=== PATIENT | male | born 1950 | race Caucasian/White ===

== ENCOUNTER 2017-04-10 09:22 | Day surgery (SDC) | payer OTHER, BC ==
[2017-04-10 09:38] VITALS: BMI 28.8
[2017-04-10] MEDS ORDERED: BUPIVACAINE HCL/PF 0.5% (5MG/ML) 10 ML VIAL ONE (12:12)
[2017-04-10] MEDS ORDERED: LIDOCAINE HCL/PF 2% SDV 5ML VIAL ONE (12:41)
[2017-04-10] MEDS ORDERED: PROPOFOL 20 ML ONE ×2 (12:41)
[2017-04-10] MEDS ORDERED: MIDAZOLAM HCL 2 MG/2 ML SINGLE DOSE VIAL ONE (12:41)
[2017-04-10] MEDS ORDERED: ROCURONIUM BROMIDE 50 MG/5 ML VIAL ONE (12:41)
[2017-04-10] MEDS ORDERED: LIDOCAINE HCL 2% (20ML MULTI-DOSE VIAL) NR ONE (13:20)
--- NOTE | 2017-04-10 13:37 | HP ---
History & Physical Update - History History: No Change - Physical Physical: No Change - Assessment Assessment: No Change - Plan Plan: No Change
[2017-04-10] MEDS ORDERED: ceFAZolin SODIUM 1 GM VIAL ONE (14:00)
[2017-04-10] MEDS ORDERED: ceFAZolin SODIUM 1 GM VIAL IVPB ONE (14:02)
[2017-04-10] MEDS ORDERED: BUPIVACAINE HCL/PF 0.5% (5MG/ML) 10 ML VIAL IJ ONE (14:04)
[2017-04-10] MEDS ORDERED: DEXAMETHASONE SOD PHOSPHATE 4 MG/1 ML VIAL ONE (14:22)
[2017-04-10] MEDS ORDERED: ONDANSETRON 4 MG/2 ML VIAL ONE (14:22)
[2017-04-10] MEDS ORDERED: MICROFIBRILLAR COLLAGEN 1 GM EACH ONE (14:30)
[2017-04-10] MEDS ORDERED: GLYCOPYRROLATE 0.2 MG/1 ML VIAL ONE (14:46)
[2017-04-10] MEDS ORDERED: NEOSTIGMINE METHYLSULFATE 0.5 MG/ML - 10 ML MDV ONE (14:46)
--- NOTE | 2017-04-10 14:54 | OP ---
Operative Note - Note: Operative Date: 04/10/17 Pre-Operative Diagnosis: r/o recurrent lymphoma, enlarged messenteric lymph node Operation: Laparoscopic messenteric lymph node biopsy Post-Operative Diagnosis: Same as Pre-op Surgeon: Aaron Castillo Dumper Operator: Cezar Sanders Anesthesiologist/ENVELOPE PATTERNMAKER: Corrie Moreno Anesthesia: General Specimens Removed: messenteric lymph node Estimated Blood Loss (mls): 25 Fluid Volume Replaced (mls): 350 Operative Report Dictated: Yes
--- NOTE | 2017-04-10 14:55 | SURG ---
Surgery Inweaver Note Inweaver: Cezar Sanders PA-C Date of Service: 04/10/17 Diagnosis: r/o recurrent lymphoma Procedure: Laparoscopic messenteric lymph node biopsy I was present for the entirety of the operative procedure. For further detail, please refer to operative report. Visit type - Case Type Case Type: Scheduled Admission - New patient This patient is new to me today: Yes Date on this admission: 04/10/17
[2017-04-10] MEDS ORDERED: ACETAMINOPHEN 1000 MG/100 ML VIAL (NON FORMULARY) IVPB ONE (14:56)
[2017-04-10] MEDS ORDERED: ONDANSETRON 4 MG/2 ML VIAL IVPUSH PRN (15:10)
[2017-04-10] MEDS ORDERED: oxyCODONE HCL 5 MG TABLET PO PRN (15:10)
[2017-04-10] MEDS ORDERED: ACETAMINOPHEN 500 MG TABLET (FP) PO PRN (15:10)
[2017-04-10] MEDS ORDERED: LACTATED RINGERS SOLUTION 1,000 ML IV SCH (15:15)
[2017-04-10] MEDS ORDERED: ACETAMINOPHEN INJECTION 100 ML IVPB ONE (15:29)
[2017-04-10 16:03] VITALS: TEMP 98.5
[2017-04-10 18:20] VITALS: BP 124/83; PULSE 88
--- NOTE | 2017-04-11 11:05 | OP ---
DATE OF OPERATION: 04/10/2017 PREOPERATIVE DIAGNOSIS: Mesenteric mass, rule out recurrent lymphoma. POSTOPERATIVE DIAGNOSIS: Mesenteric mass, rule out recurrent lymphoma. PROCEDURE: Diagnostic laparoscopy and biopsy of mesenteric mass. SURGEON: MD Krystina HOUSING INSPECTORS: FEROZ Blackwell COMPLICATIONS: None. BLEEDING: Approximately 30 mL. SPECIMENS: A segment of lymph node CONDITION: Patient tolerated the procedure well. INDICATIONS: This is a 66-year-old male with history of lymphoma for which he underwent previous treatment with good remission who presents now with a newly identified mesenteric mass for which a diagnostic excision was requested for purpose of diagnosis and treatment. Patient is currently being anticoagulated on Eliquis, which was stopped approximately three days ago. Risks and benefits were discussed with the patient and family, who agreed to proceed with this plan. DESCRIPTION OF PROCEDURE: In the operating room, after the induction of general anesthesia, patient was prepped and draped in the usual sterile fashion. IV antibiotics were administered. A standard time-out was observed, and the operation was begun with insufflation through a Veress needle in the left subcostal margin to a pressure of 15 mmHg. An Optiview trocar was then used to introduce a 5-mm port into the peritoneal cavity in the left upper quadrant under direct vision. Secondary trocars were placed, also under direct visualization with the laparoscope in place, two in the right lower quadrant and one in the left lower quadrant. A diagnostic laparoscopy revealed a mass in the paraduodenal region just inferior and posterior to the hepatic flexure. The mass could clearly be visualized just to the right of the superior mesenteric artery and its branches. Given the size of it and critical location of major vascular structures, a decision was made to not excise it, but perform a diagnostic biopsy for purposes of identification and diagnostic treatment. The peritonea overlying the mass was initially incised with cautery, and then LigaSure was used to then transect the superior and anterior aspect of this what appeared to be a lymph node mass. It was transected completely and placed in an EndoCatch bag and brought out through umbilical port. Hemostasis was achieved initially with cautery. Then, after use of LigaSure and monopolar cautery, Floseal and Surgicel were applied. At this point, the abdominal cavity was desufflated for approximately 5 minutes, and upon reinsufflation, there was no evidence of any bleeding. Appropriate hemostasis. At this point, it was decided to remove the ports, and the ports were then closed with 4-0 Monocryl upon good hemostasis, and Dermabond was applied, and the patient was returned to the recovery room, awake, alert, and in stable condition. He tolerated the procedure well. TIMO JONES M.D. [id number]
--- NOTE | 2017-04-16 09:39 | PATH ---
Surgical Pathology Report Patient Name: MARILUZ ZAVALA Med. Rec. 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 Comment: This case was seen in consultation with hematopathology service at [place], [place] ([id number], Dr. Finn). The diagnosis above reflects the consultation opinion. Sections show an enlarged lymph node with a nodular architecture. There are numerous secondary follicles of varying size and shape. The germinal centers contain normal components including centrocytes, centroblasts and tingible body macrophages. They are surrounded by a well-defined mantle zone. In addition, there is scattered follicles that show progressive transformation of germinal centers. The interfollicular areas are expanded by predominantly small lymphocytes with occasional larger cells and plasma cells. Immunohistochemical stains were performed on block #3 at [place], [place]: Stains for CD20 and CD3 from normal compartmentalization of B-cells and T-cells, respectively. The CD20+ germinal centers are additionally positive for CD10 and BCL-6; while they are negative for BCL-2. Stains for CD21 and CD23 highlight intact follicular dendritic meshwork within the follicles. A stain for CD5 similar to CD3. A stain for cyclin D1 is negative from lymphocytes. A stain for CD138 highlight scattered plasma cells. In situ hybridization for kappa and lambda light chains show the plasma cells to be polytypic. Flow cytometry performed and interpreted on the concurrent specimen at [place], [place] ([id number]) showed no evidence of B- or T-cell proliferative disorders in the sample analyzed. The B-cells (45% of total) were polytypic. The T-cells (52% of total) showed no yepez T-cell antigenic deletion. The CD4: CD8 ratio was 7.2:1. Electronically Signed Mariano Hong M.D. Gross Description Received fresh labeled "mesenteric lymph node biopsy" is a 3.4 x 2.8 x 0.9 cm mendoza-yellow, irregular soft tissue mass. A phone representative portion is placed in RPMI solution and sent for flow cytometry. The remainder of the specimen is entirely submitted in 5 cassettes. 04/10/2017 [facility]04/10/2017
== END 2017-04-10 18:21 | disposition home or self-care (01) ==
LOC: JASU-SURG 09:22
PROVIDERS: ATTEND Surgery
PROC: 0DBV4ZX Excision of Mesentery, Percutaneous Endoscopic Approach, Diagnostic (ICD-10-PCS; principal; 2017-04-10 11:00)
DX: R59.0 Localized enlarged lymph nodes (principal)
CPT/HCPCS: 88305-TC; 94760

== ENCOUNTER 2022-06-20 14:47 | Inpatient (IN) | payer OTHER, BC ==
[2022-06-20 14:54] VITALS: BMI 25.5
[2022-06-20] MEDS ORDERED: METOPROLOL TARTRATE 5 MG/5 ML VIAL IVPUSH ONE (16:45)
[2022-06-20] MEDS ORDERED: METOPROLOL TARTRATE 5 MG/5 ML VIAL ONE (16:56)
[2022-06-20 17:24] LABS: BASO % 0.3 % (0-2.0); EOS % 0.1 % (0-4.5); HEMATOCRIT 42.8 % (35.4-49); HEMOGLOBIN 14.1 GM/dL (11.7-16.9); LYMPH % 6.1 % (8-40); MCH 30.4 pg (25.7-33.7); MCHC 32.9 g/dl (32.0-35.9); MEAN CELL VOLUME 92.2 fl (80-96); MEAN PLT VOLUME 10.7 fl (7.5-11.1); MONO % 9.6 % (3.8-10.2); NEUT % 83.9 % (42.8-82.8); PLATELET COUNT 254 10^3/uL (134-434); RBC 4.65 M/mm3 (4.00-5.60); RDW 14.8 % (11.9-15.9)
[2022-06-20 17:35] LABS: INR 1.15 (0.83-1.09); PROTHROMBIN TIME (PATIENT) 13.3 SEC (9.7-13.0)
[2022-06-20 17:41] LABS: CHLORIDE 103 mmol/L (98-107); SODIUM 138 mmol/L (136-145)
[2022-06-20 17:43] LABS: ANION GAP 15 MMOL/L (8-16); CO2 20 mmol/L (21-32); GLUCOSE,RANDOM 312 mg/dL (74-106)
[2022-06-20 17:46] LABS: CREATININE 5.4 mg/dL (0.55-1.3); SGOT/AST 62 U/L (15-37); SGPT/ALT 95 U/L (13-61)
[2022-06-20 17:47] LABS: BILIRUBIN,TOTAL 1.3 mg/dL (0.2-1); TOT PROT 7.2 g/dl (6.4-8.2)
[2022-06-20 17:49] LABS: ALK PHOS 90 U/L (45-117)
[2022-06-20] MEDS ORDERED: metoPROLOL SUCCINATE 25 MG TAB.SR.24H (FP) PO ONE ×2 (17:50→18:48)
[2022-06-20 17:51] LABS: N-TERMINAL BNP 1588.5 pg/ml (5-125)
[2022-06-20 18:00] LABS: BLOOD UREA NITROGEN 117.2 mg/dL (7-18)
[2022-06-20 20:38] LABS: CHLORIDE 105 mmol/L (98-107); SODIUM 140 mmol/L (136-145)
[2022-06-20 20:39] LABS: CALCIUM 8.7 mg/dL (8.5-10.1)
[2022-06-20 20:40] LABS: ANION GAP 11 MMOL/L (8-16); CO2 24 mmol/L (21-32); GLUCOSE,RANDOM 274 mg/dL (74-106)
[2022-06-20 20:43] LABS: CREATININE 5.1 mg/dL (0.55-1.3)
[2022-06-20 20:51] LABS: BLOOD UREA NITROGEN 116.1 mg/dL (7-18)
[2022-06-20] MEDS ORDERED: SODIUM CHLORIDE 1,000 ML IV SCH (23:45)
[2022-06-21 01:59] LABS: EPI CELLS 3 /uL (0-25.1); HYALINE CASTS 1 /uL (0-3.1); URINE APPEARANCE CLEAR; URINE BACTERIA 0 /uL (0-1359); URINE BILIRUBIN NEGATIVE (NEGATIVE); URINE COLOR YELLOW; URINE GLUCOSE (UA) NEGATIVE (NEGATIVE); URINE KETONE NEGATIVE (NEGATIVE); URINE LEUK ESTERASE NEGATIVE (NEGATIVE); URINE NITRITE NEGATIVE (NEGATIVE); URINE PROTEIN TRACE (NEGATIVE); URINE RBC 30 /uL (0-23.9); URINE UROBILINOGEN 0.2 mg/dL (0.2-1.0); URINE WBC 6 /uL (0-25.8)
[2022-06-21] MEDS ORDERED: DONEPEZIL HCL 5 MG TABLET (FP) ONE (02:18)
[2022-06-21] MEDS: DONEPEZIL HCL 10 MG TABLET (FP) PO SCH ×2 (02:24→21:00)
[2022-06-21] MEDS ORDERED: METOPROLOL TARTRATE 5 MG/5 ML VIAL IVPUSH ONE ×2 (02:54→05:45)
[2022-06-21] MEDS: INSULIN SLIDING SCALE (NOVOLOG) 1 VIAL SQ SCH ×4 (06:07→21:00)
[2022-06-21 07:41] LABS: BASO % 0.1 % (0-2.0); EOS % 0.3 % (0-4.5); HEMATOCRIT 38.7 % (35.4-49); HEMOGLOBIN 12.6 GM/dL (11.7-16.9); LYMPH % 10.4 % (8-40); MCH 30.1 pg (25.7-33.7); MCHC 32.7 g/dl (32.0-35.9); MEAN PLT VOLUME 10.6 fl (7.5-11.1); MONO % 11.7 % (3.8-10.2); NEUT % 77.5 % (42.8-82.8); PLATELET COUNT 220 10^3/uL (134-434); RDW 14.3 % (11.9-15.9); WHITE BLOOD COUNT 10.9 K/mm3 (4.0-10.0)
[2022-06-21 08:01] LABS: CHLORIDE 110 mmol/L (98-107); SODIUM 144 mmol/L (136-145)
[2022-06-21 08:02] LABS: CALCIUM 8.6 mg/dL (8.5-10.1)
[2022-06-21 08:03] LABS: ALBUMIN 2.6 g/dl (3.4-5.0); ANION GAP 10 MMOL/L (8-16); CO2 24 mmol/L (21-32); GLUCOSE,RANDOM 188 mg/dL (74-106); MAGNESIUM 1.8 mg/dL (1.8-2.4)
[2022-06-21 08:05] LABS: CHOLESTEROL 96 mg/dL (50-200); CREATININE 3.9 mg/dL (0.55-1.3)
[2022-06-21 08:06] LABS: BILIRUBIN,TOTAL 1.3 mg/dL (0.2-1); LDL CHOLESTEROL (ONLY SJRH) 57 mg/dL (5-100); PHOSPHOROUS 3.8 mg/dL (2.5-4.9); SGOT/AST 37 U/L (15-37); SGPT/ALT 71 U/L (13-61); TRIGLYCERIDES 90 mg/dL (0-150)
[2022-06-21 08:07] LABS: TOT PROT 6.3 g/dl (6.4-8.2)
[2022-06-21 08:08] LABS: ALK PHOS 75 U/L (45-117); HDL CHOLESTEROL 27 mg/dL (40-60)
[2022-06-21] MEDS ORDERED: ACETAMINOPHEN 325 MG TABLET (FP) PO PRN (08:24)
[2022-06-21 08:36] LABS: BLOOD UREA NITROGEN 104.4 mg/dL (7-18)
[2022-06-21] MEDS: ATENOLOL 50 MG TABLET (FP) PO SCH ×2 (09:50→21:00)
[2022-06-21] MEDS ORDERED: FUROSEMIDE 40 MG TABLET (FP) PO SCH (10:00)
[2022-06-21] MEDS: SODIUM CHLORIDE 0.45% 1,000 ML IV SCH (16:05)
[2022-06-22] MEDS: SODIUM CHLORIDE 0.45% 1,000 ML IV SCH ×2 (05:53→12:50)
[2022-06-22] MEDS: INSULIN SLIDING SCALE (NOVOLOG) 1 VIAL SQ SCH ×4 (05:59→22:37)
[2022-06-22 09:40] LABS: BASO % 0.2 % (0-2.0); EOS % 0.1 % (0-4.5); HEMATOCRIT 38.3 % (35.4-49); HEMOGLOBIN 12.5 GM/dL (11.7-16.9); LYMPH % 7.5 % (8-40); MCH 30.1 pg (25.7-33.7); MCHC 32.5 g/dl (32.0-35.9); MEAN CELL VOLUME 92.6 fl (80-96); MEAN PLT VOLUME 10.3 fl (7.5-11.1); MONO % 10.2 % (3.8-10.2); PLATELET COUNT 233 10^3/uL (134-434); RBC 4.14 M/mm3 (4.00-5.60); RDW 14.3 % (11.9-15.9); WHITE BLOOD COUNT 14.2 K/mm3 (4.0-10.0)
[2022-06-22 09:54] LABS: CALCIUM 8.7 mg/dL (8.5-10.1)
[2022-06-22 09:55] LABS: ALBUMIN 2.5 g/dl (3.4-5.0); BLOOD UREA NITROGEN 79.8 mg/dL (7-18); MAGNESIUM 1.7 mg/dL (1.8-2.4)
[2022-06-22 09:58] LABS: BILIRUBIN,TOTAL 1.2 mg/dL (0.2-1); CREATININE 2.5 mg/dL (0.55-1.3); TOT PROT 6.2 g/dl (6.4-8.2)
[2022-06-22] MEDS: ASCORBIC ACID 500 MG TABLET (FP) PO SCH (10:52)
[2022-06-22] MEDS: ATENOLOL 50 MG TABLET (FP) PO SCH ×2 (10:52→22:32)
[2022-06-22] MEDS ORDERED: MAGNESIUM OXIDE 400 MG TABLET (FP) PO ONE (11:25)
[2022-06-22] MEDS: DONEPEZIL HCL 10 MG TABLET (FP) PO SCH (22:33)
[2022-06-22] MEDS: INSULIN (LEVEMIR) 100 UNITS/ML UNITS SQ SCH (22:37)
[2022-06-23] MEDS: INSULIN SLIDING SCALE (NOVOLOG) 1 VIAL SQ SCH ×4 (06:03→21:18)
[2022-06-23 08:34] LABS: BASO % 0.1 % (0-2.0); EOS % 0.4 % (0-4.5); HEMATOCRIT 38.7 % (35.4-49); HEMOGLOBIN 12.6 GM/dL (11.7-16.9); LYMPH % 10.1 % (8-40); MCH 30.1 pg (25.7-33.7); MCHC 32.5 g/dl (32.0-35.9); MEAN CELL VOLUME 92.6 fl (80-96); MEAN PLT VOLUME 9.8 fl (7.5-11.1); NEUT % 79.4 % (42.8-82.8); PLATELET COUNT 217 10^3/uL (134-434); RBC 4.18 M/mm3 (4.00-5.60); RDW 14.8 % (11.9-15.9); WHITE BLOOD COUNT 12.8 K/mm3 (4.0-10.0)
[2022-06-23 08:55] LABS: ALBUMIN 2.5 g/dl (3.4-5.0); BLOOD UREA NITROGEN 64.4 mg/dL (7-18); MAGNESIUM 1.7 mg/dL (1.8-2.4)
[2022-06-23 08:58] LABS: CREATININE 2.1 mg/dL (0.55-1.3)
[2022-06-23 08:59] LABS: BILIRUBIN,TOTAL 1.5 mg/dL (0.2-1)
[2022-06-23 09:00] LABS: TOT PROT 6.6 g/dl (6.4-8.2)
[2022-06-23] MEDS: ASCORBIC ACID 500 MG TABLET (FP) PO SCH (10:33)
[2022-06-23] MEDS: ATENOLOL 50 MG TABLET (FP) PO SCH ×2 (10:33→21:18)
[2022-06-23] MEDS ORDERED: MAGNESIUM OXIDE 400 MG TABLET (FP) PO ONE (16:49)
[2022-06-23] MEDS: DONEPEZIL HCL 10 MG TABLET (FP) PO SCH (21:18)
[2022-06-23] MEDS: INSULIN (LEVEMIR) 100 UNITS/ML UNITS SQ SCH (21:19)
[2022-06-24] MEDS: INSULIN SLIDING SCALE (NOVOLOG) 1 VIAL SQ SCH ×4 (06:14→23:03)
[2022-06-24 08:39] LABS: BASO % 0.3 % (0-2.0); EOS % 0.5 % (0-4.5); HEMATOCRIT 39.4 % (35.4-49); HEMOGLOBIN 12.8 GM/dL (11.7-16.9); LYMPH % 11.6 % (8-40); MCH 30.3 pg (25.7-33.7); MCHC 32.5 g/dl (32.0-35.9); MEAN CELL VOLUME 93.2 fl (80-96); MEAN PLT VOLUME 10.1 fl (7.5-11.1); MONO % 8.4 % (3.8-10.2); NEUT % 79.2 % (42.8-82.8); PLATELET COUNT 204 10^3/uL (134-434); RBC 4.23 M/mm3 (4.00-5.60); RDW 14.9 % (11.9-15.9); WHITE BLOOD COUNT 13.8 K/mm3 (4.0-10.0)
[2022-06-24 09:07] LABS: ALBUMIN 2.5 g/dl (3.4-5.0)
[2022-06-24 09:08] LABS: BLOOD UREA NITROGEN 57.4 mg/dL (7-18); MAGNESIUM 1.6 mg/dL (1.8-2.4)
[2022-06-24 09:11] LABS: CREATININE 1.8 mg/dL (0.55-1.3)
[2022-06-24 09:12] LABS: BILIRUBIN,TOTAL 1.4 mg/dL (0.2-1); TOT PROT 6.5 g/dl (6.4-8.2)
[2022-06-24] MEDS: ATENOLOL 50 MG TABLET (FP) PO SCH ×2 (10:38→22:59)
[2022-06-24] MEDS: ASCORBIC ACID 500 MG TABLET (FP) PO SCH (10:38)
[2022-06-24 13:30] VITALS: RESP 18
[2022-06-24] MEDS: FINASTERIDE 5 MG TABLET (FP) PO SCH (14:32)
[2022-06-24] MEDS: DONEPEZIL HCL 10 MG TABLET (FP) PO SCH (22:59)
[2022-06-24] MEDS: TAMSULOSIN HCL 0.4 MG CAP PO SCH (22:59)
[2022-06-24] MEDS: INSULIN (LEVEMIR) 100 UNITS/ML UNITS SQ SCH (23:05)
[2022-06-25] MEDS: INSULIN SLIDING SCALE (NOVOLOG) 1 VIAL SQ SCH ×4 (06:03→21:40)
[2022-06-25] MEDS ORDERED: TAMSULOSIN HCL 0.4 MG CAP PO SCH (08:30)
[2022-06-25 09:30] LABS: BASO % 0.2 % (0-2.0); EOS % 0.5 % (0-4.5); HEMATOCRIT 36.3 % (35.4-49); HEMOGLOBIN 11.7 GM/dL (11.7-16.9); LYMPH % 12.9 % (8-40); MCHC 32.2 g/dl (32.0-35.9); MEAN CELL VOLUME 93.2 fl (80-96); MONO % 6.8 % (3.8-10.2); NEUT % 79.6 % (42.8-82.8); PLATELET COUNT 178 10^3/uL (134-434); RDW 14.8 % (11.9-15.9); WHITE BLOOD COUNT 14.2 K/mm3 (4.0-10.0)
[2022-06-25 09:58] LABS: ALBUMIN 2.3 g/dl (3.4-5.0); BLOOD UREA NITROGEN 43.5 mg/dL (7-18); CALCIUM 8.6 mg/dL (8.5-10.1); MAGNESIUM 1.5 mg/dL (1.8-2.4)
[2022-06-25] MEDS ORDERED: SODIUM CHLORIDE 0.45% 1,000 ML IV SCH (10:00)
[2022-06-25 10:01] LABS: CREATININE 1.5 mg/dL (0.55-1.3)
[2022-06-25 10:03] LABS: TOT PROT 6.1 g/dl (6.4-8.2)
[2022-06-25] MEDS: FINASTERIDE 5 MG TABLET (FP) PO SCH (10:24)
[2022-06-25] MEDS: ASCORBIC ACID 500 MG TABLET (FP) PO SCH (10:24)
[2022-06-25] MEDS: TAMSULOSIN HCL 0.4 MG CAP PO SCH ×2 (10:24→21:37)
[2022-06-25] MEDS: ATENOLOL 50 MG TABLET (FP) PO SCH ×2 (10:25→21:36)
[2022-06-25] MEDS: DONEPEZIL HCL 10 MG TABLET (FP) PO SCH (21:36)
[2022-06-25] MEDS: INSULIN (LEVEMIR) 100 UNITS/ML UNITS SQ SCH (21:41)
[2022-06-25 22:36] VITALS: BP 124/66; PULSE 88; TEMP 97.8
== END 2022-06-25 22:42 | DRG 682 ==
LOC: JER 14:47 → JERBED 18:36 → J4S 06-21 02:36
PROVIDERS: ADMIT Internal Medicine; ATTEND Nurse Practitioner Family
DX: N17.9 Acute kidney failure, unspecified (principal); G93.41 Metabolic encephalopathy; I50.32 Chronic diastolic (congestive) heart failure; I13.0 Hypertensive heart and chronic kidney disease with heart failure and stage 1 through stage 4 chronic kidney disease, or unspecified chronic kidney disease; J10.1 Influenza due to other identified influenza virus with other respiratory manifestations; I48.91 Unspecified atrial fibrillation; S00.83XA Contusion of other part of head, initial encounter; N18.9 Chronic kidney disease, unspecified; E11.9 Type 2 diabetes mellitus without complications; W19.XXXA Unspecified fall, initial encounter; Y93.9 Activity, unspecified; Y92.89 Other specified places as the place of occurrence of the external cause; Y99.9 Unspecified external cause status; D72.829 Elevated white blood cell count, unspecified; R74.01 Elevation of levels of liver transaminase levels
CPT/HCPCS: 0241U-QW; 36415; 70450-TC; 70486-TC; 71046-TC-FY; 72125-TC; 76705-TC; 76775-TC; 76856-TC; 80048; 80053; 80061; 81003; 82550; 82553; 82570; 82962; 83036; 83735; 83880; 84100; 84156; 84300; 84439; 84443; 84484; 84540; 85025; 85610; 85730; 86704; 86705; 86803; 87040; 87340; 87517; 93005; 93010; 93880-TC; 94761; 97116-GP; 97161-GP; 99291; C9803-CS; U0003; U0005